=== PATIENT | female | born 1965 | race Caucasian/White ===

== ENCOUNTER 2017-07-07 10:17 | Inpatient (IN) ==
[2017-07-07] MEDS ORDERED: DIAZEPAM 5 MG TABLET PO ONE (10:55)
[2017-07-07] MEDS ORDERED: POTASSIUM CHLORIDE RIDER 10 MEQ in PREMIX 1 EACH IV PRN (10:55)
[2017-07-07] MEDS ORDERED: diphenhydrAMINE CAP 25 MG CAPSULE PO ONE (10:55)
[2017-07-07] MEDS ORDERED: MAGNESIUM SULF RIDER 2 GM in PREMIX 1 EACH IV PRN (10:55)
[2017-07-07] MEDS ORDERED: ASPIRIN 325 MG TABLET PO ONE (10:55)
[2017-07-07] MEDS ORDERED: diphenhydrAMINE CAP 25 MG CAPSULE ONE (11:41)
[2017-07-07] MEDS ORDERED: DIAZEPAM 5 MG TABLET ONE (11:41)
[2017-07-07] MEDS: SODIUM CHLORIDE 0.9% 1,000 ML IV SCH (11:48)
[2017-07-07 16:34] LABS: Apearance,Urine CLEAR (Clear); Bilirubin,Urine Negative (Negative); Blood, Urine Negative (Negative); Glucose,Urine (UA) Negative (Negative); Ketones,Urine 5 mg/dL (Negative); Mucus,Urine Occasional /LPF (Occasional); Nitrite,Urine Negative (Negative); Protein,Urine Negative; RBC,Urine <1 /HPF (0-4); Squamous Epithelial Cell,Urine Occasional /HPF (0-10); Urine Color Yellow (Yellow); Urine Specific Gravity 1.012 (1.001-1.035); Urine Urobilinogen < 2.0 EU/DL (0.2-1.0); WBC,Urine <1 /HPF (0-6)
[2017-07-07] MEDS ORDERED: CLORAZEPATE 3.75 MG TABLET PO SCH (19:00)
[2017-07-07] MEDS: CLORAZEPATE 3.75 MG TABLET PO SCH (21:28)
[2017-07-07 21:38] LABS: Barbiturates Screen,Urine Negative (Negative); Benzodiazepines Screen,Urine Positive (Negative); Cannabinoid Screen,Urine Positive (Negative); Opiate Screen,Urine Negative (Negative); Phencyclidine Screen,Urine Negative (Negative)
[2017-07-08 05:09] LABS: Basophils % 0.7 % (0.0-0.8); Eosinophils # 0.3 10*3/uL (0.0-0.87); Eosinophils % 5.1 % (0.00-10.9); Hematocrit 40.2 VOL% (35.7-47.0); Hemoglobin 13.4 GM/DL (12.0-16.0); Immature Granulocytes % 0.2 %; Immature Granulocytes Absolute 0.01 #; Lymphocytes # 2.3 10*3/uL (1.4-4.0); Mean Corpuscular HGB Conc 33.3 GM/DL (32-36); Mean Corpuscular Hemoglobin 28 PG (27-34); Monocytes # 0.4 10*3/uL (0.11-0.8); Monocytes % 6.8 % (1.7-12.7); Neutrophils # 2.7 10*3/uL (1.4-7.4); Neutrophils % 47.2 % (38.7-73.9); Platelet Count 225 T/CUMM (130-400); Red Blood Count 4.73 MC/CUMM (3.8-5.5); Red Cell Distribution Width 12.8 % (9.3-17.3); White Blood Count 5.7 T/CUMM (4-12)
[2017-07-08 05:46] LABS: Free T4 (Free Thyroxine) 1.07 NG/DL (0.76-1.46); Thyroid Stimulating Hormone 1.27 uIU/ml (0.358-3.74)
[2017-07-08 05:50] LABS: Folate 12.8 NG/ML (5.4-24.0)
[2017-07-08 05:52] LABS: Albumin 3.5 G/DL (3.4-5.0); Bilirubin,Total 0.5 MG/DL (0.2-1.0); Calcium 9.1 MG/DL (8.5-10.1); Osmolality,Calculated 276.5 MOS/KG (273-304); Potassium 3.9 MMOL/L (3.5-5.1)
[2017-07-08] MEDS: LABETALOL 100 MG TABLET PO SCH (08:15)
[2017-07-08] MEDS: LISINOPRIL 5 MG TABLET PO SCH (08:15)
[2017-07-08] MEDS: ASPIRIN EC 81 MG TABLET PO SCH (08:15)
[2017-07-08] MEDS: ROSUVASTATIN 20 MG TABLET PO SCH (08:15)
[2017-07-08] MEDS: VENLAFAXINE XR 75 MG CAPSULE PO SCH (08:15)
[2017-07-08] MEDS: CLORAZEPATE 3.75 MG TABLET PO SCH ×2 (08:15→20:47)
[2017-07-08] MEDS: ACETAMINOPHEN 325 MG TABLET PO PRN (08:18)
[2017-07-08] MEDS: SODIUM CHLORIDE 0.9% 1,000 ML IV SCH (10:01)
[2017-07-08] MEDS ORDERED: POTASSIUM CHLORIDE RIDER 10 MEQ in PREMIX 1 EACH IV PRN (16:17)
[2017-07-08] MEDS ORDERED: MAGNESIUM SULF RIDER 2 GM in PREMIX 1 EACH IV PRN (16:17)
[2017-07-09] MEDS: ROSUVASTATIN 20 MG TABLET PO SCH (08:33)
[2017-07-09] MEDS: VENLAFAXINE XR 75 MG CAPSULE PO SCH (08:34)
[2017-07-09] MEDS: LISINOPRIL 5 MG TABLET PO SCH (08:34)
[2017-07-09] MEDS: CLORAZEPATE 3.75 MG TABLET PO SCH ×2 (08:34→22:18)
[2017-07-09] MEDS: ASPIRIN EC 81 MG TABLET PO SCH (08:34)
[2017-07-09] MEDS: LABETALOL 100 MG TABLET PO SCH (08:34)
[2017-07-09] MEDS ORDERED: diphenhydrAMINE CAP 25 MG CAPSULE PO ONE (11:00)
[2017-07-09] MEDS ORDERED: DIAZEPAM 5 MG TABLET PO ONE (11:00)
[2017-07-09] MEDS: SODIUM CHLORIDE 0.9% 1,000 ML IV SCH (13:09)
[2017-07-09] MEDS ORDERED: HEPARIN/NACL 0.9% 2 UNITS/ML 500 ML IV ONE ×2 (13:20→18:26)
[2017-07-09] MEDS ORDERED: LIDOCAINE 1% 20 ML VIAL ONE ×2 (13:20→18:12)
[2017-07-09] MEDS ORDERED: HEPARIN/NACL 0.9% 2 UNITS/ML 1,000 ML IV ONE (18:11)
[2017-07-09] MEDS ORDERED: NITROGLYCERIN DRIP 50 MG/250 ML BOTTLE IV ONE (18:12)
[2017-07-09] MEDS ORDERED: VERAPAMIL 5 MG/2 ML VIAL ONE (18:12)
[2017-07-09] MEDS ORDERED: MIDAZOLAM 2 MG/2 ML VIAL ONE (18:21)
[2017-07-09] MEDS ORDERED: HYDROmorphone 2 MG/1 ML VIAL ONE (18:21)
[2017-07-10 05:40] LABS: Basophils % 0.6 % (0.0-0.8); Eosinophils # 0.2 10*3/uL (0.0-0.87); Eosinophils % 4.6 % (0.00-10.9); Hematocrit 37.5 VOL% (35.7-47.0); Hemoglobin 12.1 GM/DL (12.0-16.0); Immature Granulocytes % 0.4 %; Immature Granulocytes Absolute 0.02 #; Lymphocytes % 38.2 % (21.3-54.2); Mean Corpuscular HGB Conc 32.3 GM/DL (32-36); Mean Corpuscular Hemoglobin 29 PG (27-34); Mean Corpuscular Volume 88.4 FL (87-102); Mean Platelet Volume 9.4 FL (9.6-12.0); Monocytes # 0.4 10*3/uL (0.11-0.8); Neutrophils # 2.5 10*3/uL (1.4-7.4); Neutrophils % 48.2 % (38.7-73.9); Platelet Count 231 T/CUMM (130-400); Red Blood Count 4.24 MC/CUMM (3.8-5.5); Red Cell Distribution Width 13.2 % (9.3-17.3); White Blood Count 5.2 T/CUMM (4-12)
[2017-07-10 06:05] LABS: Calcium 8.8 MG/DL (8.5-10.1); Magnesium 2.8 MG/DL (1.8-2.4); Osmolality,Calculated 284.8 MOS/KG (273-304)
[2017-07-10 06:06] VITALS: BP 99/48
[2017-07-10] MEDS: LISINOPRIL 5 MG TABLET PO SCH (08:45)
[2017-07-10] MEDS: ACETAMINOPHEN 325 MG TABLET PO PRN (08:46)
[2017-07-10] MEDS: CLORAZEPATE 3.75 MG TABLET PO SCH (08:47)
[2017-07-10] MEDS: ROSUVASTATIN 20 MG TABLET PO SCH (08:47)
[2017-07-10] MEDS: VENLAFAXINE XR 75 MG CAPSULE PO SCH (08:48)
[2017-07-10] MEDS: LABETALOL 100 MG TABLET PO SCH (08:48)
[2017-07-10] MEDS: ASPIRIN EC 81 MG TABLET PO SCH (08:49)
== END 2017-07-10 11:07 | disposition home or self-care (01) | DRG 287 ==
LOC: N.CL 10:17 → N.TELES 15:48
PROVIDERS: ADMIT Internal Medicine Clinical Cardiac Electrophysiology; ATTEND Internal Medicine Clinical Cardiac Electrophysiology
PROC: CLCCHCL (ICD-10-PCS; 2017-07-09 14:15)